=== PATIENT | male | born 1955 | race Caucasian/White ===

== ENCOUNTER 2017-03-01 09:36 | Inpatient (IN) | payer OTHER ==
[~2017-03-01] VITALS: Ht 172.7 cm; Wt 83.5 kg
[2017-03-01 11:10] LABS: CALCIUM 8.6 mg/dL (8.5-10.1); CARBON DIOXIDE 22.8 mmol/L (21-32); CHLORIDE SERUM 95 mmol/L (98-107); CREATININE SERUM 2.4 mg/dL (0.7-1.3); GFR1 30 mL/min; GLUCOSE SERUM 124 mg/dL (74-106); POTASSIUM SERUM 3.9 mmol/L (3.5-5.1); SODIUM SERUM 131 mmol/L (136-145)
[2017-03-01 11:13] LABS: PLATELET COUNT 354 x10^3mcL (130-400)
[2017-03-01 11:15] LABS: ALKALINE PHOSPHATASE 98 U/L (46-116); ALT/SGPT 66 U/L (16-63); AST/SGOT 103 U/L (15-37); BILIRUBIN TOTAL 0.9 mg/dL (0.20-1.00); MAGNESIUM 1.6 mg/dL (1.8-2.4)
[2017-03-01 11:17] LABS: ALBUMIN 2.6 g/dL (3.4-5.0); TOTAL PROTEIN, SERUM 9.7 g/dL (6.4-8.2)
[2017-03-01 11:33] LABS: BAND NEUTROPHIL 2 % (0-10); BASOPHIL 0 % (0-2); MONOCYTE 9 % (0-7); SEGMENTED NEUTROPHILS 89 % (37-75)
[2017-03-01 11:35] LABS: PLATELET MORPHOLOGY PLATELETS INCREASED; rbc morphology (normal/abnorm) ABNORMAL (NORMAL)
[2017-03-01 12:16] LABS: UA SPECIFIC GRAVITY >=1.030 (1.005-1.035); microscopic required? YES; urine erythrocyte 2+ (NEGATIVE)
[2017-03-01 12:58] VITALS: BP 164/82
[2017-03-01 13:34] VITALS: BP 154/96
[2017-03-01 13:37] VITALS: Ht 172.7 cm; Wt 83.5 kg
[2017-03-01 16:46] VITALS: BP 129/76
[2017-03-01 20:46] VITALS: BP 115/69
[2017-03-02 05:50] VITALS: BP 131/77
[2017-03-02 06:12] LABS: PLATELET COUNT 322 x10^3mcL (130-400)
[2017-03-02 07:02] LABS: POTASSIUM SERUM 4.3 mmol/L (3.5-5.1)
[2017-03-02 07:03] LABS: CALCIUM 8.6 mg/dL (8.5-10.1); CARBON DIOXIDE 24.4 mmol/L (21-32); CREATININE SERUM 1.7 mg/dL (0.7-1.3)
[2017-03-02 07:04] LABS: MAGNESIUM 2.2 mg/dL (1.8-2.4)
[2017-03-02 07:49] LABS: RED CELL DISTRIBUTION WIDTH 14.9 % (11.5-14.5)
[2017-03-02 09:12] VITALS: BP 131/73
[2017-03-02] MEDS ORDERED: CLINDAMYCIN HC300 MG PO (10:15)
[2017-03-02] MEDS ORDERED: ACETAMINOPHEN-H1 TA1 PO (10:16)
[2017-03-02 12:18] LABS: AMPHETAMINE QUAL UR NONE DETECTED (NEG <=1000)
[2017-03-02 12:42] LABS: BAND NEUTROPHIL 5 % (0-10); BASOPHIL 0 % (0-2); MONOCYTE 1 % (0-7); SEGMENTED NEUTROPHILS 90 % (37-75)
[2017-03-02 12:43] LABS: PLATELET MORPHOLOGY PLATELETS NORMAL; rbc morphology (normal/abnorm) ABNORMAL (NORMAL)
[2017-03-02 12:49] VITALS: BP 138/76
[2017-03-02 16:33] VITALS: BP 119/67
[2017-03-02 21:09] VITALS: BP 129/71
[2017-03-03 06:00] VITALS: BP 119/62
[2017-03-03 06:55] LABS: CALCIUM 8.1 mg/dL (8.5-10.1); CARBON DIOXIDE 19.4 mmol/L (21-32); CREATININE SERUM 1.4 mg/dL (0.7-1.3); MAGNESIUM 1.9 mg/dL (1.8-2.4); POTASSIUM SERUM 3.8 mmol/L (3.5-5.1)
[2017-03-03 07:53] LABS: PLATELET COUNT 305 x10^3mcL (130-400)
[2017-03-03 07:54] LABS: RED CELL DISTRIBUTION WIDTH 14.9 % (11.5-14.5)
[2017-03-03 08:35] VITALS: BP 140/87
[2017-03-03 08:53] LABS: BAND NEUTROPHIL 6 % (0-10); BASOPHIL 0 % (0-2); MONOCYTE 1 % (0-7); PLATELET MORPHOLOGY PLATELETS NORMAL; SEGMENTED NEUTROPHILS 90 % (37-75)
[2017-03-03 08:54] LABS: burr cell (echinocyte) 1+; ovalocyte/elliptocyte 1+; rbc morphology (normal/abnorm) ABNORMAL (NORMAL)
[2017-03-03 13:21] VITALS: BP 133/69
[2017-03-03 17:37] VITALS: BP 144/72
[2017-03-03 20:39] VITALS: BP 156/72
[2017-03-04 05:14] VITALS: BP 127/68
[2017-03-04 05:58] LABS: CALCIUM 7.6 mg/dL (8.5-10.1); CARBON DIOXIDE 21.4 mmol/L (21-32); CHLORIDE SERUM 112 mmol/L (98-107); CREATININE SERUM 1.3 mg/dL (0.7-1.3); GFR1 > 60 mL/min; GLUCOSE SERUM 173 mg/dL (74-106); MAGNESIUM 1.6 mg/dL (1.8-2.4); POTASSIUM SERUM 3.2 mmol/L (3.5-5.1); SODIUM SERUM 143 mmol/L (136-145)
[2017-03-04 06:22] LABS: PLATELET COUNT 332 x10^3mcL (130-400)
[2017-03-04 06:51] LABS: RED CELL DISTRIBUTION WIDTH 15.2 % (11.5-14.5)
[2017-03-04 07:56] VITALS: BP 147/64
[2017-03-04 09:48] LABS: ATYPICAL LYMPH 1 %; BAND NEUTROPHIL 2 % (0-10); BASOPHIL 0 % (0-2); MONOCYTE 1 % (0-7); SEGMENTED NEUTROPHILS 96 % (37-75); rbc morphology (normal/abnorm) ABNORMAL (NORMAL)
[2017-03-04 09:49] LABS: PLATELET MORPHOLOGY PLATELETS NORMAL
[2017-03-04 12:26] VITALS: BP 145/81
[2017-03-04 14:35] VITALS: BP 145/81
== END 2017-03-04 15:24 | disposition home or self-care (01) | DRG 383 ==
LOC: ED 09:36 → DU 11:05
PROVIDERS: Emergency Medicine; ADMIT Internal Medicine Pulmonary Disease
DX: L03.211 Cellulitis of face (principal); F15.10 Other stimulant abuse, uncomplicated; E87.6 Hypokalemia; F17.210 Nicotine dependence, cigarettes, uncomplicated; G47.33 Obstructive sleep apnea (adult) (pediatric)
CPT/HCPCS: 83880; G0480; J0696; J1100; J1644; J2405; J3010; J3370; J3475; J3490; J7030; J8540; Q0092; Q0163

== ENCOUNTER 2020-06-13 10:51 | Emergency (ER) | payer SELFPAY ==
[~2020-06-13] VITALS: Ht 172.7 cm; Wt 90.7 kg
[~2020-06-13 10:51] MED LIST: ACETAMINOPHEN-H1 TA1 PO; CAT0.1 PO; CLINDAMYCIN HC300 MG PO; KEF500 PO; LAC PO; METOPROLOL TART25 M1 PO; ZES20 PO
[2020-06-13 10:56] VITALS: BP 126/91; Ht 172.7 cm; Wt 90.7 kg
== END 2020-06-13 12:00 | disposition home or self-care (01) ==
LOC: ED 10:51
DX: U07.1 COVID-19 (principal); F17.210 Nicotine dependence, cigarettes, uncomplicated; E11.9 Type 2 diabetes mellitus without complications; I10 Essential (primary) hypertension; Z71.6 Tobacco abuse counseling
CPT/HCPCS: 99406; U0003